=== PATIENT | male | born 1965 | race Caucasian/White ===

== ENCOUNTER → 2020-08-18 | Outpatient (CLI) | payer OTHER | LOC: RAD 12:45 | DX: R29.890 Loss of height (principal) ==

== ENCOUNTER → 2021-08-25 | Outpatient (CLI) | payer OTHER | LOC: MRI 09:19 | PROVIDERS: ATTEND Physician Assistant | DX: M47.816 Spondylosis without myelopathy or radiculopathy, lumbar region (principal); M48.061 Spinal stenosis, lumbar region without neurogenic claudication; R29.898 Other symptoms and signs involving the musculoskeletal system ==